=== PATIENT | female | born 1955 | race Caucasian/White ===

== ENCOUNTER 2017-06-19 05:26 | Inpatient (IN) | payer OTHER, MEDICARE ==
[2017-06-13 11:22] LABS: BASOPHILS % (AUTO) 0.6 % (0-1); EOSINOPHILS # (AUTO) 0.2 X10'3 (0-0.9); EOSINOPHILS % (AUTO) 4.1 % (0-6); LYMPHOCYTES # (AUTO) 1.3 X10'3 (1.1-4.8); LYMPHOCYTES % (AUTO) 28.6 % (21-51); MEAN CORPUSCULAR HEMOGLOBIN 30.1 PG (27.0-31.0); MEAN CORPUSCULAR HGB CONC 34.6 % (33.0-36.5); MEAN CORPUSCULAR VOLUME 86.9 FL (78-98); MEAN PLATELET VOLUME 7.4 FL (7.4-10.4); MONOCYTES # (AUTO) 0.3 X10'3 (0-0.9); MONOCYTES % (AUTO) 6.6 % (2-12); NEUTROPHILS # (AUTO) 2.7 X10'3 (1.8-7.7); NEUTROPHILS % (AUTO) 60.1 % (42-75); PRE OP HEMATOCRIT 36.3 % (35.0-45.0); PRE OP HEMOGLOBIN 12.6 g/dL (12.0-16.0); PRE OP PLATELET COUNT 273 X10'3 (140-440); RED BLOOD COUNT 4.18 X10'6 (4.20-5.60); RED CELL DISTRIBUTION WIDTH 12.8 % (11.5-14.5)
[2017-06-13 11:32] LABS: CLARITY,URINE Clear (Clear); COLOR,URINE Yellow (Yellow); GLUCOSE, URINE Negative (Neg); KETONES,URINE Negative (Neg); LEUKOCYTE ESTERASE ,URINE Small (Neg); NITRITES, URINE Negative (Neg); OCCULT BLOOD,URINE Moderate (Neg); PROTEIN,URINE Negative (Neg); UA COLLECTION TYPE CLN CATCH MIDSTREAM
[2017-06-13 11:34] LABS: PRE OP INR 0.9 INR; PRE OP PROTIME 9.4 SECONDS (9.0-12.0)
[2017-06-13 11:41] LABS: ALBUMIN 4.1 G/DL (3.4-5.0); ALBUMIN/GLOBULIN RATIO 1.2 (1.1-1.5); ALKALINE PHOSPHATASE 106 IU/L (46-116); BLOOD UREA NITROGEN 23 MG/DL (7-18); BUN/CREATININE RATIO 20.5 (6.6-38.0); CALCIUM 9.5 MG/DL (8.5-10.1); CHLORIDE 104 MMOL/L (99-107); CREATININE 1.12 MG/DL (0.40-0.90); PRE OP ALT 28 U/L (30-65); PRE OP ANION GAP 3 (8-16); PRE OP AST 19 U/L (10-37); PRE OP BILIRUB, TOTAL 0.6 MG/DL (0.0-1.0); PRE OP GLUCOSE 94 MG/DL (70-104); PRE OP POTASSIUM 4.1 MMOL/L (3.4-5.1); PRE OP SODIUM 141 MMOL/L (135-145); TOTAL CARBON DIOXIDE 33.8 MMOL/L (24-32); TOTAL PROTEIN 7.5 G/DL (6.4-8.2); eGFR 49 ML/MIN
[2017-06-13 11:45] LABS: SQUAMOUS EPITHELIAL CELL,UR FEW /LPF (FEW); TRANSITIONAL EPI CELLS,URINE FEW /HPF
[2017-06-13 11:47] LABS: BACTERIA,URINE FEW /HPF (Neg); WBC,URINE 0-4 /HPF (0-4)
[~2017-06-19] VITALS: Ht 162.6 cm; Wt 78.7 kg
[2017-06-19] VITALS (15 sets, daily range): BP systolic 82–127; BP diastolic 48–83
[~2017-06-19 05:26] MED LIST: BUPR150T6 PO; CELE-85 PO; CITA20TA11 PO; CYCL-1 PO; DULO60CA64 PO; HYDR-3193 PO; LISI1TAB11 PO; PANT40TA4 PO; VALA100027 PO; ringers solution, lacted 1,000 ML IV SCH
[2017-06-19] MEDS ORDERED: famotidine 20mg tablet PO ONE (05:30)
[2017-06-19] MEDS ORDERED: celeCOXIB 100mg capsule PO ONE (05:30)
[2017-06-19] MEDS ORDERED: oxyCODONE SR 10mg (sust. release) tab PO ONE (05:30)
[2017-06-19] MEDS ORDERED: gabapentin 300mg capsule PO ONE (05:30)
[2017-06-19] MEDS ORDERED: ceFAZolin 2gm in dextrose, iso 100 ML IV ONE (05:30)
[2017-06-19] MEDS ORDERED: acetaminophen 325mg tablet PO ONE (05:30)
[2017-06-19] MEDS ORDERED: vancomycin inj 1,500 MG in normal saline 300ml IV soln IV ONE (05:30)
[2017-06-19] MEDS ORDERED: LIDOcaine 1% (10mg/ml) 2ml vial ONE (05:54)
[2017-06-19] MEDS ORDERED: epiNEPHrine 1 mg/ml inj ONE (06:47)
[2017-06-19] MEDS ORDERED: cloNIDine hcl/PF 100mcg/ml inj ONE (06:47)
[2017-06-19] MEDS ORDERED: ketorolac trometh. 30mg/ml inj. ONE (06:47)
[2017-06-19] MEDS ORDERED: vancomycin 1,000mg inj ONE (06:47)
[2017-06-19] MEDS ORDERED: ROPIVAcaine 0.5% (5mg/ml) 30ml vial ONE (06:48)
[2017-06-19] MEDS ORDERED: ASPI-1265 PO (07:08)
[2017-06-19] MEDS ORDERED: BUPIVAcaine/PF 7.5mg/ml (0.75%) 10ml vial ONE (07:13)
[2017-06-19] MEDS ORDERED: MIDAZolam 1mg/ml 10ml vial ONE (07:15)
[2017-06-19] MEDS ORDERED: fentaNYL/PF 50MCG/1 ML 2ML syringe ONE (07:15)
[2017-06-19] MEDS ORDERED: tranexamic acid inj. 1,000 MG in normal saline 100ml IV soln 90 ML IV ONE (07:15)
[2017-06-19] MEDS ORDERED: MORPHINE SULFATE/PF 0.5 MG/ML 10ML AMPUL ONE (07:15)
[2017-06-19] MEDS ORDERED: LIDOcaine 1%/PF (10mg/ml) 5ml vial ONE (07:41)
[2017-06-19] MEDS ORDERED: ringers solution, lacted 1,000 ML IV SCH (08:09)
[2017-06-19] MEDS ORDERED: naloxone 2mg/2ml inj 1.6 MG in normal saline 500ml IV soln 500 ML IV PRN (08:10)
[2017-06-19] MEDS ORDERED: meperidine/PF 25mg/ml syringe IV PRN ×3 (08:10)
[2017-06-19] MEDS ORDERED: diphenhydrAMINE 50 mg/ml inj IV PRN (08:10)
[2017-06-19] MEDS ORDERED: proCHLORperazine 10 MG/2 ml inj IV PRN (08:10)
[2017-06-19] MEDS ORDERED: ondansetron/PF 4mg/2ml inj IV PRN ×2 (08:10→09:10)
[2017-06-19] MEDS ORDERED: magnesium hydroxide 30ml (MOM) UD suspension PO PRN (09:10)
[2017-06-19] MEDS ORDERED: acetaminophen 325mg tablet PO PRN (09:10)
[2017-06-19] MEDS ORDERED: VALACYCLOVIR HCL PO PRN (09:10)
[2017-06-19] MEDS ORDERED: bisacodyl 10mg suppository rectal RC PRN (09:10)
[2017-06-19] MEDS ORDERED: HYDROmorphone 1 mg/ml syringe IV PRN ×2 (09:10)
[2017-06-19] MEDS ORDERED: diphenhydrAMINE 25mg capsule PO PRN ×2 (09:10)
[2017-06-19] MEDS: cefazolin 1gm/NS 100mL 100 ML IV SCH ×2 (16:34→23:59)
[2017-06-19] MEDS: gabapentin 300mg capsule PO SCH ×2 (16:34→20:42)
[2017-06-19] MEDS: potassium cl 20mEq in 1/2 NS 1,000 ML IV SCH ×2 (16:35→17:09)
[2017-06-19] MEDS: oxyCODONE/APAP 10/325mg tablet PO PRN ×2 (16:43→17:41)
[2017-06-19] MEDS ORDERED: vancomycin/NS 1 GM ADD-VANTAGE 250 ML IV SCH (20:00)
[2017-06-19] MEDS: cyclobenzaprine 10mg tablet PO SCH (20:41)
[2017-06-19] MEDS: pantoprazole 40mg Tablet.DR PO SCH (20:42)
[2017-06-19] MEDS: ascorbic acid 500mg tablet PO SCH (20:42)
[2017-06-19] MEDS: sennosides 8.6mg tablet PO SCH (20:42)
[2017-06-20 02:00] VITALS: BP 118/66
[2017-06-20] MEDS: potassium cl 20mEq in 1/2 NS 1,000 ML IV SCH ×3 (03:20→17:09)
[2017-06-20] MEDS: oxyCODONE/APAP 10/325mg tablet PO PRN ×4 (03:45→18:55)
[2017-06-20 06:00] VITALS: BP 100/64
[2017-06-20 06:15] LABS: BASOPHILS % (AUTO) 0.2 % (0-1); EOSINOPHILS # (AUTO) 0.1 X10'3 (0-0.9); EOSINOPHILS % (AUTO) 1.4 % (0-6); HEMATOCRIT 26.4 % (35.0-45.0); HEMOGLOBIN 8.9 g/dl (12.0-16.0); LYMPHOCYTES % (AUTO) 14.5 % (21-51); MEAN CORPUSCULAR HEMOGLOBIN 29.8 PG (27.0-31.0); MEAN CORPUSCULAR HGB CONC 33.7 % (33.0-36.5); MEAN CORPUSCULAR VOLUME 88.3 FL (78-98); MEAN PLATELET VOLUME 7.7 FL (7.4-10.4); MONOCYTES # (AUTO) 0.5 X10'3 (0-0.9); MONOCYTES % (AUTO) 7.5 % (2-12); NEUTROPHILS # (AUTO) 5.1 X10'3 (1.8-7.7); NEUTROPHILS % (AUTO) 76.4 % (42-75); PLATELET COUNT 216 X10'3 (140-440); RED CELL DISTRIBUTION WIDTH 12.9 % (11.5-14.5); WHITE BLOOD COUNT 6.7 X10'3 (4.5-11.0)
[2017-06-20 06:42] LABS: ANION GAP 6 (8-16); CHLORIDE 102 MMOL/L (99-107); POTASSIUM 4.6 MMOL/L (3.5-5.1); SODIUM 135 MMOL/L (135-145); TOTAL CARBON DIOXIDE 27.4 MMOL/L (24-32)
[2017-06-20] MEDS: HYDROchlorothiazide 12.5mg capsule PO SCH (08:00)
[2017-06-20] MEDS: lisinopril 20mg tablet PO SCH (08:00)
[2017-06-20] MEDS: gabapentin 300mg capsule PO SCH ×3 (08:20→20:38)
[2017-06-20] MEDS: citalopram 20mg tablet PO SCH (08:20)
[2017-06-20] MEDS: duloxetine 30mg CAPSULE.DR PO SCH (08:20)
[2017-06-20] MEDS: pantoprazole 40mg Tablet.DR PO SCH ×2 (08:21→20:38)
[2017-06-20] MEDS: ascorbic acid 500mg tablet PO SCH ×2 (08:21→20:38)
[2017-06-20] MEDS: multivitamins, therapeutics tablet PO SCH (08:21)
[2017-06-20] MEDS: buPROPion SR 150mg tablet PO SCH (08:21)
[2017-06-20] MEDS: enoxaparin 40mg/0.4ml syringe SUBCUT SCH (08:22)
[2017-06-20] MEDS ORDERED: aspirin 325mg tablet PO SCH (08:30)
[2017-06-20 10:00] VITALS: BP 105/47
[2017-06-20 14:00] VITALS: BP 87/43
[2017-06-20 19:00] VITALS: BP 103/54
[2017-06-20] MEDS: sennosides 8.6mg tablet PO SCH (20:38)
[2017-06-20] MEDS: cyclobenzaprine 10mg tablet PO SCH (20:38)
[2017-06-21] MEDS: potassium cl 20mEq in 1/2 NS 1,000 ML IV SCH (01:09)
[2017-06-21] MEDS: oxyCODONE/APAP 10/325mg tablet PO PRN ×5 (04:32→20:35)
[2017-06-21 06:43] VITALS: BP 99/54
[2017-06-21 06:43] LABS: BASOPHILS % (AUTO) 0.2 % (0-1); EOSINOPHILS # (AUTO) 0.3 X10'3 (0-0.9); EOSINOPHILS % (AUTO) 6.1 % (0-6); HEMATOCRIT 24.4 % (35.0-45.0); HEMOGLOBIN 8.6 g/dl (12.0-16.0); LYMPHOCYTES # (AUTO) 1.3 X10'3 (1.1-4.8); LYMPHOCYTES % (AUTO) 24.1 % (21-51); MEAN CORPUSCULAR HEMOGLOBIN 30.4 PG (27.0-31.0); MEAN CORPUSCULAR HGB CONC 35.2 % (33.0-36.5); MEAN CORPUSCULAR VOLUME 86.3 FL (78-98); MEAN PLATELET VOLUME 7.8 FL (7.4-10.4); MONOCYTES # (AUTO) 0.5 X10'3 (0-0.9); MONOCYTES % (AUTO) 9.8 % (2-12); NEUTROPHILS # (AUTO) 3.3 X10'3 (1.8-7.7); NEUTROPHILS % (AUTO) 59.8 % (42-75); PLATELET COUNT 194 X10'3 (140-440); RED BLOOD COUNT 2.83 X10'6 (4.20-5.60); RED CELL DISTRIBUTION WIDTH 13.1 % (11.5-14.5); WHITE BLOOD COUNT 5.5 X10'3 (4.5-11.0)
[2017-06-21] MEDS: HYDROchlorothiazide 12.5mg capsule PO SCH (08:00)
[2017-06-21] MEDS: lisinopril 20mg tablet PO SCH (08:00)
[2017-06-21] MEDS: citalopram 20mg tablet PO SCH (08:29)
[2017-06-21] MEDS: pantoprazole 40mg Tablet.DR PO SCH ×2 (08:30→20:34)
[2017-06-21] MEDS: duloxetine 30mg CAPSULE.DR PO SCH (08:30)
[2017-06-21] MEDS: gabapentin 300mg capsule PO SCH ×3 (08:30→20:34)
[2017-06-21] MEDS: enoxaparin 40mg/0.4ml syringe SUBCUT SCH (08:31)
[2017-06-21] MEDS: multivitamins, therapeutics tablet PO SCH (08:31)
[2017-06-21] MEDS: buPROPion SR 150mg tablet PO SCH (08:31)
[2017-06-21] MEDS: ascorbic acid 500mg tablet PO SCH ×2 (08:31→20:34)
[2017-06-21 11:00] VITALS: BP 105/49
[2017-06-21 18:34] VITALS: BP 120/58
[2017-06-21] MEDS: sennosides 8.6mg tablet PO SCH (20:34)
[2017-06-21] MEDS: cyclobenzaprine 10mg tablet PO SCH (20:34)
[2017-06-21 22:08] VITALS: BP 107/51
[2017-06-22] MEDS: oxyCODONE/APAP 10/325mg tablet PO PRN ×2 (04:56→09:18)
[2017-06-22 05:00] VITALS: BP 97/48
[2017-06-22 06:52] LABS: BASOPHILS % (AUTO) 0.2 % (0-1); EOSINOPHILS # (AUTO) 0.2 X10'3 (0-0.9); EOSINOPHILS % (AUTO) 4.5 % (0-6); HEMATOCRIT 24.3 % (35.0-45.0); HEMOGLOBIN 8.7 g/dl (12.0-16.0); LYMPHOCYTES # (AUTO) 0.8 X10'3 (1.1-4.8); LYMPHOCYTES % (AUTO) 15.5 % (21-51); MEAN CORPUSCULAR HEMOGLOBIN 30.7 PG (27.0-31.0); MEAN CORPUSCULAR HGB CONC 35.7 % (33.0-36.5); MEAN PLATELET VOLUME 7.9 FL (7.4-10.4); MONOCYTES # (AUTO) 0.5 X10'3 (0-0.9); MONOCYTES % (AUTO) 9.7 % (2-12); NEUTROPHILS # (AUTO) 3.8 X10'3 (1.8-7.7); NEUTROPHILS % (AUTO) 70.1 % (42-75); PLATELET COUNT 193 X10'3 (140-440); RED BLOOD COUNT 2.83 X10'6 (4.20-5.60); RED CELL DISTRIBUTION WIDTH 13.2 % (11.5-14.5); WHITE BLOOD COUNT 5.4 X10'3 (4.5-11.0)
[2017-06-22] MEDS: HYDROchlorothiazide 12.5mg capsule PO SCH (08:00)
[2017-06-22] MEDS: lisinopril 20mg tablet PO SCH (08:00)
[2017-06-22] MEDS: ascorbic acid 500mg tablet PO SCH (09:12)
[2017-06-22] MEDS: enoxaparin 40mg/0.4ml syringe SUBCUT SCH (09:13)
[2017-06-22] MEDS: buPROPion SR 150mg tablet PO SCH (09:14)
[2017-06-22] MEDS: gabapentin 300mg capsule PO SCH (09:14)
[2017-06-22] MEDS: duloxetine 30mg CAPSULE.DR PO SCH (09:14)
[2017-06-22] MEDS: citalopram 20mg tablet PO SCH (09:15)
[2017-06-22] MEDS: pantoprazole 40mg Tablet.DR PO SCH (09:15)
[2017-06-22] MEDS: multivitamins, therapeutics tablet PO SCH (09:17)
[2017-06-22 10:00] VITALS: BP 111/65
== END 2017-06-22 12:00 | disposition home or self-care (01) | DRG 470 ==
LOC: PAS IN 05:26 → EDSTATUS 07:30 → ORTHO 4S 10:00
PROVIDERS: ADMIT Orthopaedic Surgery; ATTEND Orthopaedic Surgery
PROC: 3E0T3BZ Introduction of Anesthetic Agent into Peripheral Nerves and Plexi, Percutaneous Approach (ICD-10-PCS; 2017-06-19)
PROC: 0SR906Z Replacement of Right Hip Joint with Oxidized Zirconium on Polyethylene Synthetic Substitute, Open Approach (ICD-10-PCS; principal; 2017-06-19 07:10)
DX: M16.11 Unilateral primary osteoarthritis, right hip (principal); D62 Acute posthemorrhagic anemia; I10 Essential (primary) hypertension; I48.91 Unspecified atrial fibrillation; K21.9 Gastro-esophageal reflux disease without esophagitis; F32.9 Major depressive disorder, single episode, unspecified; F41.9 Anxiety disorder, unspecified; G89.4 Chronic pain syndrome; M79.7 Fibromyalgia; Z80.9 Family history of malignant neoplasm, unspecified; Z79.82 Long term (current) use of aspirin; Z88.6 Allergy status to analgesic agent; Z88.8 Allergy status to other drugs, medicaments and biological substances; Z82.49 Family history of ischemic heart disease and other diseases of the circulatory system; Z83.3 Family history of diabetes mellitus; Z82.3 Family history of stroke; Z87.891 Personal history of nicotine dependence
CPT/HCPCS: 36415; 71046; 72170; 80051; 80053; 81001; 85025; 85610; 85730; 86885; 86900; 86901; 87070; 87088; 93005; 97110; 97116; 97162; 97530; A4615; A6449; A7000; C1758; C1776; J0171; J0690; J0735; J1200; J1650; J1885; J2001; J2250; J2274; J2310; J2405; J2795; J3010; J3370; J3490; J7030; J7120

== ENCOUNTER 2019-11-12 05:24 | Observation (INO) | payer MEDICARE ==
[2019-11-04 12:47] LABS: BASOPHILS % (AUTO) 0.5 % (0-1); EOSINOPHILS # (AUTO) 0.2 X10'3 (0-0.9); EOSINOPHILS % (AUTO) 4.1 % (0-6); LYMPHOCYTES % (AUTO) 23.1 % (21-51); MEAN CORPUSCULAR HEMOGLOBIN 30.3 PG (27.0-31.0); MEAN CORPUSCULAR HGB CONC 33.9 g/dL (33.0-36.5); MEAN CORPUSCULAR VOLUME 89.5 FL (78-98); MEAN PLATELET VOLUME 7.6 FL (7.4-10.4); MONOCYTES # (AUTO) 0.3 X10'3 (0-0.9); MONOCYTES % (AUTO) 7.2 % (2-12); NEUTROPHILS # (AUTO) 2.9 X10'3 (1.8-7.7); NEUTROPHILS % (AUTO) 65.1 % (42-75); PRE OP HEMATOCRIT 35.8 % (35.0-45.0); PRE OP HEMOGLOBIN 12.1 g/dL (12.0-16.0); PRE OP PLATELET COUNT 272 X10'3 (140-440); RED CELL DISTRIBUTION WIDTH 13.1 % (11.5-14.5)
[2019-11-04 12:57] LABS: PRE OP INR 0.9 INR; PRE OP PROTIME 9.8 SECONDS (9.0-12.0)
[2019-11-04 12:59] LABS: ALBUMIN 3.7 G/DL (3.4-5.0); ALBUMIN/GLOBULIN RATIO 1.1 (1.1-1.5); ALKALINE PHOSPHATASE 119 IU/L (46-116); BLOOD UREA NITROGEN 18 MG/DL (7-18); BUN/CREATININE RATIO 13.2 (6.6-38.0); CHLORIDE 103 MMOL/L (99-107); CREATININE 1.36 MG/DL (0.40-0.90); PRE OP ALT 21 U/L (30-65); PRE OP ANION GAP 8 (8-16); PRE OP AST 19 U/L (10-37); PRE OP BILIRUB, TOTAL 0.4 MG/DL (0.0-1.0); PRE OP GLUCOSE 155 MG/DL (70-104); PRE OP POTASSIUM 3.8 MMOL/L (3.4-5.1); PRE OP SODIUM 142 MMOL/L (135-145); TOTAL CARBON DIOXIDE 31.5 MMOL/L (24-32); eGFR 39 ML/MIN
[~2019-11-12] VITALS: Ht 162.6 cm; Wt 72.6 kg
[2019-11-12] VITALS (14 sets, daily range): BP systolic 86–133; BP diastolic 31–91
[~2019-11-12 05:24] MED LIST changes: -CELE-85 PO; -CITA20TA11 PO; +CITA20TA28 PO; -CYCL-1 PO; -DULO60CA64 PO; +DULO60CA65 PO; -HYDR-3193 PO; +HYDR-4353 PO; -LISI1TAB11 PO; +LISI1TAB28 PO; -VALA100027 PO
[2019-11-12] MEDS ORDERED: famotidine 20mg tablet PO ONE (05:30)
[2019-11-12] MEDS ORDERED: cefazolin/dext.iso 2gm/50ml 50 ML IV ONE (05:30)
[2019-11-12] MEDS ORDERED: acetaminophen 325mg tablet PO ONE (05:30)
[2019-11-12] MEDS ORDERED: vancomycin 1,500 MG in NS 300ml IV soln IV ONE (05:30)
[2019-11-12] MEDS ORDERED: metoclopramide 5 mg/ml inj IV ONE (05:30)
[2019-11-12] MEDS ORDERED: gabapentin 300mg capsule PO ONE (05:30)
[2019-11-12] MEDS ORDERED: celeCOXIB 100mg capsule PO ONE (05:30)
[2019-11-12] MEDS ORDERED: oxyCODONE SR 10mg (sust. release) tab -2 tabs (20mg) PO ONE (05:30)
[2019-11-12] MEDS ORDERED: tranexamic acid 1gm/0.7% sal. 100 ML IV ONE (05:30)
[2019-11-12] MEDS ORDERED: LIDOcaine 1% (10mg/ml) 2ml vial ONE (05:55)
[2019-11-12] MEDS ORDERED: ketorolac trometh. 30mg/ml inj. ONE (06:37)
[2019-11-12] MEDS ORDERED: ROPIVAcaine 0.5% (5mg/ml) 30ml vial ONE (06:38)
[2019-11-12] MEDS ORDERED: epiNEPHrine 1 mg/ml inj ONE (06:38)
[2019-11-12] MEDS ORDERED: vancomycin 1,000mg inj ONE (06:38)
[2019-11-12] MEDS ORDERED: cloNIDine hcl/PF 100mcg/ml inj ONE (06:38)
[2019-11-12] MEDS: potassium cl 20mEq in 1/2 NS 1,000 ML IV SCH ×3 (06:40→20:33)
[2019-11-12] MEDS ORDERED: magnesium hydroxide 30ml (MOM) UD suspension PO PRN (06:40)
[2019-11-12] MEDS ORDERED: bisacodyl 10mg suppository rectal RC PRN (06:40)
[2019-11-12] MEDS ORDERED: ondansetron/PF 4mg/2ml inj IV PRN ×2 (06:40→06:55)
[2019-11-12] MEDS ORDERED: diphenhydrAMINE 25mg capsule PO PRN ×2 (06:40)
[2019-11-12] MEDS ORDERED: tranexamic acid inj. 1,000 MG in normal saline 100ml IV soln 100 ML IV ONE ×2 (06:40→13:00)
[2019-11-12] MEDS ORDERED: acetaminophen 325mg tablet PO PRN (06:40)
[2019-11-12] MEDS ORDERED: hydrALAZINE 20mg/ml inj. IV PRN (06:55)
[2019-11-12] MEDS ORDERED: ringers solution, lacted 1,000 ML IV SCH (06:55)
[2019-11-12] MEDS ORDERED: labetalol 20mg/4ml (5mg/ml) syringe IV PRN (06:55)
[2019-11-12] MEDS ORDERED: fentaNYL/PF 50MCG/1 ML 2ML syringe IV PRN ×2 (06:55)
[2019-11-12] MEDS ORDERED: fentaNYL/PF 50MCG/1 ML 2ML syringe ONE (06:58)
[2019-11-12] MEDS ORDERED: MIDAZolam 1mg/ml 10ml vial ONE (06:58)
[2019-11-12] MEDS ORDERED: phenylephrine 10mg/ml inj. ONE (07:01)
[2019-11-12] MEDS: citalopram 20mg tablet PO SCH (08:00)
[2019-11-12] MEDS: duloxetine 30mg CAPSULE.DR PO SCH (08:00)
[2019-11-12] MEDS: lisinopril 20mg tablet PO SCH (08:00)
[2019-11-12] MEDS: buPROPion SR 150mg tablet PO SCH (08:00)
[2019-11-12] MEDS: pantoprazole 40mg Tablet.DR PO SCH ×2 (08:00→20:33)
--- NOTE | 2019-11-12 08:20 | NUR ---
Received from OR via BED , accompanied by Anesthesiologist DR JIMÉNEZ and report given by Anesthesiolgist. PATIENT WAKING UP, DENIES PAIN, V/S WNL, NEUROVASCULAR CHECKS INTACT, 18G PIV LUE , TAD DRESSING TO LEFT HIP CDI W/ COLD POWDER PACK AND IMMOBILIZER ON SENSATION T-11-12.
--- NOTE | 2019-11-12 09:20 | NUR ---
PATIENT WAKING UP, DENIES PAIN, V/S WNL, NEUROVASCULAR CHECKS INTACT, 18G PIV LUE , TAD DRESSING TO LEFT HIP CDI W/ COLD POWDER PACK AND IMMOBILIZER ON SENSATION T-11-12. . PATIENT TAKEN TO 4024A WITH ALL BELONGINGS AND HOOKED UP TO MONITORS IN ROOM AND REPORT GIVEN TO [employer] INVESTIGATOR WHO HAS TAKEN OVER PATIENT CARE.
[2019-11-12] MEDS: oxyCODONE/APAP 5-325mg tablet PO PRN ×3 (09:48→19:39)
[2019-11-12] MEDS: HYDROmorphone 1 mg/ml syringe IV PRN ×3 (12:55→21:53)
--- NOTE | 2019-11-12 16:00 | NUR ---
PATIENT BLOOD PRESSURE 83/26 GAVE HER A 250 BOLUS PER PROTOCOL CAME UP TO 113/46 WILL CONTINUE TO MONITOR
[2019-11-12] MEDS: ceFAZolin 1GM/D5W- ADD-VANTAGE 50 ML IV SCH (16:08)
--- NOTE | 2019-11-12 18:20 | NUR ---
Patient in room ORTHO 4015. I have received report from MIHAI Mcpherson and had the opportunity to ask questions and assume patient care.
[2019-11-12] MEDS ORDERED: vancomycin/NS 1 GM ADD-VANTAGE 250 ML IV SCH (20:00)
[2019-11-12] MEDS: gabapentin 300mg capsule PO SCH (20:33)
[2019-11-12] MEDS: sennosides 8.6mg tablet PO SCH (20:33)
[2019-11-12] MEDS: ascorbic acid 500mg tablet PO SCH (20:33)
[2019-11-13] VITALS (7 sets, daily range): BP systolic 94–123; BP diastolic 42–56
[2019-11-13] MEDS: ceFAZolin 1GM/D5W- ADD-VANTAGE 50 ML IV SCH (00:29)
[2019-11-13] MEDS: HYDROmorphone inj. 0.5 MG/0.5 ML DISP.SYRIN IV PRN ×2 (02:18→20:32)
[2019-11-13] MEDS: oxyCODONE/APAP 5-325mg tablet PO PRN ×3 (04:15→22:43)
[2019-11-13 06:05] LABS: BASOPHILS % (AUTO) 0.3 % (0-1); EOSINOPHILS # (AUTO) 0.1 X10'3 (0-0.9); EOSINOPHILS % (AUTO) 1.9 % (0-6); HEMATOCRIT 29.2 % (35.0-45.0); HEMOGLOBIN 9.9 g/dl (12.0-16.0); LYMPHOCYTES # (AUTO) 0.7 X10'3 (1.1-4.8); LYMPHOCYTES % (AUTO) 15.4 % (21-51); MEAN CORPUSCULAR HEMOGLOBIN 30.4 PG (27.0-31.0); MEAN CORPUSCULAR VOLUME 89.4 FL (78-98); MEAN PLATELET VOLUME 7.8 FL (7.4-10.4); MONOCYTES # (AUTO) 0.4 X10'3 (0-0.9); MONOCYTES % (AUTO) 9.8 % (2-12); NEUTROPHILS # (AUTO) 3.3 X10'3 (1.8-7.7); NEUTROPHILS % (AUTO) 72.6 % (42-75); PLATELET COUNT 209 X10'3 (140-440); RED BLOOD COUNT 3.26 X10'6 (4.20-5.60); RED CELL DISTRIBUTION WIDTH 12.6 % (11.5-14.5); WHITE BLOOD COUNT 4.6 X10'3 (4.5-11.0)
[2019-11-13 06:18] LABS: ANION GAP 6 (8-16); CHLORIDE 106 MMOL/L (99-107); SODIUM 141 MMOL/L (135-145); TOTAL CARBON DIOXIDE 29.4 MMOL/L (24-32)
--- NOTE | 2019-11-13 06:19 | NUR ---
Problems reprioritized. Patient report given, questions answered & plan of care reviewed with MIHAI Monterroso.
--- NOTE | 2019-11-13 06:28 | NUR ---
Patient in room ORTHO 4024. I have received report from Ceci HOLM and had the opportunity to ask questions and assume patient care.
[2019-11-13] MEDS: HYDROchlorothiazide 12.5mg capsule PO SCH (07:27)
[2019-11-13] MEDS: lisinopril 20mg tablet PO SCH (07:28)
[2019-11-13] MEDS: HYDROmorphone 1 mg/ml syringe IV PRN ×2 (09:31→13:55)
[2019-11-13] MEDS: buPROPion SR 150mg tablet PO SCH ×2 (09:33→20:26)
[2019-11-13] MEDS: duloxetine 30mg CAPSULE.DR PO SCH (09:33)
[2019-11-13] MEDS: citalopram 20mg tablet PO SCH (09:34)
[2019-11-13] MEDS: pantoprazole 40mg Tablet.DR PO SCH ×2 (09:35→20:26)
[2019-11-13] MEDS: multivitamins, therapeutics tablet PO SCH (09:35)
[2019-11-13] MEDS: gabapentin 300mg capsule PO SCH ×3 (09:35→20:26)
[2019-11-13] MEDS: ascorbic acid 500mg tablet PO SCH ×2 (09:35→20:26)
[2019-11-13] MEDS: aspirin 325mg tablet PO SCH (09:36)
[2019-11-13] MEDS: potassium cl 20mEq in 1/2 NS 1,000 ML IV SCH ×3 (09:38→22:40)
--- NOTE | 2019-11-13 12:39 | NUR ---
Patient resting quietly, at bedside. No complaints or stated needs at this time.
--- NOTE | 2019-11-13 13:37 | NUR ---
Joint replacement surgery: Pt/ seen by FILI for written/verbal high protein ed w/ RD contact information provided. Pt declines additional proteins at this time. Addendum: 11/13/19 at [address] Amended: Links added.
--- NOTE | 2019-11-13 19:00 | NUR ---
Report from Kriss.
--- NOTE | 2019-11-13 19:25 | NUR ---
Report given to Tonia HOLM.
[2019-11-13] MEDS: sennosides 8.6mg tablet PO SCH (20:26)
[2019-11-14] MEDS: oxyCODONE/APAP 5-325mg tablet PO PRN ×2 (03:52→12:18)
[2019-11-14 06:00] VITALS: BP 93/39
[2019-11-14 06:10] LABS: BASOPHILS % (AUTO) 0.1 % (0-1); EOSINOPHILS % (AUTO) 0.5 % (0-6); HEMATOCRIT 26.9 % (35.0-45.0); HEMOGLOBIN 9.1 g/dl (12.0-16.0); LYMPHOCYTES # (AUTO) 0.6 X10'3 (1.1-4.8); LYMPHOCYTES % (AUTO) 8.3 % (21-51); MEAN CORPUSCULAR HEMOGLOBIN 30.3 PG (27.0-31.0); MEAN CORPUSCULAR VOLUME 89.2 FL (78-98); MONOCYTES # (AUTO) 0.6 X10'3 (0-0.9); MONOCYTES % (AUTO) 9.1 % (2-12); NEUTROPHILS # (AUTO) 5.7 X10'3 (1.8-7.7); PLATELET COUNT 187 X10'3 (140-440); RED BLOOD COUNT 3.01 X10'6 (4.20-5.60); RED CELL DISTRIBUTION WIDTH 13.4 % (11.5-14.5); WHITE BLOOD COUNT 6.9 X10'3 (4.5-11.0)
--- NOTE | 2019-11-14 06:25 | NUR ---
Patient in room ORTHO 4024. I have received report from Tonia Watts and had the opportunity to ask questions and assume patient care.
--- NOTE | 2019-11-14 06:35 | NUR ---
Problems reprioritized. Patient report given, questions answered & plan of care reviewed with MIHAI Deng.
[2019-11-14] MEDS: HYDROmorphone inj. 0.5 MG/0.5 ML DISP.SYRIN IV PRN (06:42)
[2019-11-14] MEDS: citalopram 20mg tablet PO SCH (07:15)
[2019-11-14] MEDS: gabapentin 300mg capsule PO SCH ×2 (07:15→12:18)
[2019-11-14] MEDS: duloxetine 30mg CAPSULE.DR PO SCH (07:15)
[2019-11-14] MEDS: pantoprazole 40mg Tablet.DR PO SCH (07:16)
[2019-11-14] MEDS: buPROPion SR 150mg tablet PO SCH (07:16)
[2019-11-14] MEDS: multivitamins, therapeutics tablet PO SCH (07:16)
[2019-11-14] MEDS: ascorbic acid 500mg tablet PO SCH (07:16)
[2019-11-14] MEDS: HYDROchlorothiazide 12.5mg capsule PO SCH (07:18)
[2019-11-14] MEDS: lisinopril 20mg tablet PO SCH (07:18)
[2019-11-14] MEDS: aspirin 325mg tablet PO SCH (10:19)
[2019-11-14 10:41] VITALS: BP 100/41
--- NOTE | 2019-11-14 14:30 | NUR ---
Reviewed discharge instructions with pt. Pt verbalized understanding. Pt is alert, oriented. Pt's spouse is at bedside assisting pt with dressing. All of pt's belongings were returned to pt. Pt was wheeled downstairs to be driven home by her spouse.
== END 2019-11-14 14:30 | disposition home or self-care (01) ==
LOC: PAS 05:24 → ORTHO 4S 05:25
PROVIDERS: ADMIT Orthopaedic Surgery; ATTEND Orthopaedic Surgery
DX: Z03.818 Encounter for observation for suspected exposure to other biological agents ruled out (principal); M16.12 Unilateral primary osteoarthritis, left hip
CPT/HCPCS: 27130; 36415; 72170; 80051; 80053; 82948; 85025; 85610; 85730; 86885; 86900; 86901; 87081; 96365; 96366; 96367; 96375; 96376; 97110; 97116; 97161; 97530; C1776; G0378; J0171; J0690; J0735; J1170; J1885; J2001; J2250; J2370; J2765; J3010; J3370; J7040; J7120; U0003; A4615; A7000; J2795; J3480

== ENCOUNTER 2021-08-18 06:10 | Inpatient (IN) | payer MEDICARE ==
[2021-08-12 16:07] LABS: CLARITY,URINE CLOUDY (Clear); COLOR,URINE YELLOW (Yellow); GLUCOSE, URINE NEGATIVE (Neg); KETONES,URINE TRACE mg/dl (Neg); LEUKOCYTE ESTERASE ,URINE MODERATE (Neg); NITRITES, URINE NEGATIVE (Neg); OCCULT BLOOD,URINE MODERATE (Neg); PH,URINE 5.5 (4.8-8.0); PROTEIN,URINE NEGATIVE (Neg); UROBILINOGEN,URINE 0.2 E.U/dL (0.2-1.0)
[2021-08-12 16:10] LABS: BASOPHILS % (AUTO) 0.6 % (0-1); EOSINOPHILS # (AUTO) 0.2 X10'3 (0-0.9); LYMPHOCYTES # (AUTO) 1.3 X10'3 (1.1-4.8); LYMPHOCYTES % (AUTO) 28.9 % (21-51); MEAN CORPUSCULAR HEMOGLOBIN 29.2 PG (27.0-31.0); MEAN CORPUSCULAR HGB CONC 33.5 g/dL (33.0-36.5); MEAN CORPUSCULAR VOLUME 87.2 FL (78-98); MEAN PLATELET VOLUME 7.8 FL (7.4-10.4); MONOCYTES # (AUTO) 0.3 X10'3 (0-0.9); NEUTROPHILS # (AUTO) 2.6 X10'3 (1.8-7.7); NEUTROPHILS % (AUTO) 58.5 % (42-75); PRE OP HEMATOCRIT 37.1 % (35.0-45.0); PRE OP HEMOGLOBIN 12.4 g/dL (12.0-16.0); PRE OP PLATELET COUNT 247 X10'3 (140-440); RED BLOOD COUNT 4.25 X10'6 (4.20-5.60); RED CELL DISTRIBUTION WIDTH 13.6 % (11.5-14.5)
[2021-08-12 16:13] LABS: UA COLLECTION TYPE CLN CATCH MIDSTREAM
[2021-08-12 16:14] LABS: SQUAMOUS EPITHELIAL CELL,UR MANY /LPF (FEW)
[2021-08-12 16:15] LABS: BACTERIA,URINE 1+ /HPF (Neg); MUCUS STRANDS FEW /LPF (Neg); RBC,URINE 0-2 /HPF (0-2); TRANSITIONAL EPI CELLS,URINE MODERATE /HPF
[2021-08-12 16:17] LABS: ALBUMIN 3.4 G/DL (3.4-5.0); ALBUMIN/GLOBULIN RATIO 0.9 (1.1-1.5); ALKALINE PHOSPHATASE 113 IU/L (46-116); BLOOD UREA NITROGEN 25 MG/DL (7-18); BUN/CREATININE RATIO 25.5 (6.6-38.0); CALCIUM 9.5 MG/DL (8.5-10.1); CHLORIDE 104 MMOL/L (99-107); CREATININE 0.98 MG/DL (0.40-0.90); PRE OP ALT 19 U/L (30-65); PRE OP ANION GAP 9 (8-16); PRE OP AST 16 U/L (10-37); PRE OP BILIRUB, TOTAL 0.2 MG/DL (0.0-1.0); PRE OP GLUCOSE 126 MG/DL (70-104); PRE OP POTASSIUM 3.9 MMOL/L (3.4-5.1); PRE OP SODIUM 143 MMOL/L (135-145); TOTAL CARBON DIOXIDE 30.4 MMOL/L (24-32); eGFR 57 ML/MIN
[2021-08-18] VITALS (24 sets, daily range): BP systolic 103–134; BP diastolic 42–86
[~2021-08-18] VITALS: Ht 162.6 cm; Wt 74.8 kg
[~2021-08-18 06:10] MED LIST changes: +BUPR-317 PO; -BUPR150T6 PO; +ESTR10TA4 VG; +GABA300C PO; +GABA600T13 PO; +HYDR-3972 PO; -HYDR-4353 PO; -LISI1TAB28 PO; +LISI1TAB51 PO; -PANT40TA4 PO; +cefazolin/dext.iso 2gm/50ml IV ONE; +famotidine 20mg tablet PO ONE; -ringers solution, lacted 1,000 ML IV SCH
[2021-08-18] MEDS ORDERED: CYCL-1 PO (07:24)
[2021-08-18] MEDS: ringers solution, lacted 1,000 ML IV SCH ×5 (07:32→22:21)
[2021-08-18] MEDS ORDERED: BUPIVAcaine 0.5% inj/PF 30 ML ONE (09:19)
[2021-08-18] MEDS ORDERED: ringers solution, lacted 1,000 ML IV SCH (09:35)
[2021-08-18] MEDS ORDERED: hydrALAZINE 20mg/ml inj. IV PRN (09:35)
[2021-08-18] MEDS ORDERED: fentaNYL/PF 50MCG/1 ML 2ML syringe IV PRN (09:35)
[2021-08-18] MEDS ORDERED: labetalol 20mg/4ml (5mg/ml) syringe IV PRN (09:35)
[2021-08-18] MEDS ORDERED: HYDROmorphone/PF 0.2 MG/ML SYRINGE IV PRN ×2 (09:35)
[2021-08-18] MEDS ORDERED: ondansetron/PF 4mg/2ml inj IV PRN ×2 (09:35→11:55)
[2021-08-18] MEDS ORDERED: FENTANYL CITRATE/PF 50 MCG/1 ML VIAL ONE (09:37)
[2021-08-18] MEDS ORDERED: midazolam 1 mg/ML 2ml injection ONE (09:38)
[2021-08-18] MEDS ORDERED: LIDOcaine 2% (20mg/ml) 5ml vial ONE (09:39)
[2021-08-18] MEDS ORDERED: propofol inj 20 ML IV ONE (09:39)
[2021-08-18] MEDS ORDERED: glycopyrrolate 0.2mg/ml inj ONE (09:40)
[2021-08-18] MEDS ORDERED: ondansetron/PF 4mg/2ml inj ONE (09:40)
[2021-08-18] MEDS ORDERED: neostigmine methylsulfate 1 MG/ML 10ml vial ONE (09:40)
[2021-08-18] MEDS ORDERED: atropine 0.4 mg/ml 20ml vial ONE (10:12)
[2021-08-18] MEDS ORDERED: BUPIVAcaine 0.5% inj/PF 30 ml vial IJ ONE (10:40)
--- NOTE | 2021-08-18 11:10 | NUR ---
PT ARRIVED TO RR VIA VISHNU, ACCOMPANIED BY DR. JIMÉNEZ-ANESTHESIA REPORT GIVEN, PT WAKING UP, DENIES PAIN, VSS, 20G PIV RUE, SCDS ON, 4 LAPS SITE-CDI WITH JANETTE PRESENT-SUCTION PRESENT.
[2021-08-18] MEDS: fentaNYL/PF 50MCG/1 ML 2ML syringe IV PRN ×2 (11:18→11:45)
[2021-08-18] MEDS ORDERED: acetaminophen 1,000mg/100ml IV 100 ML IV ONE (11:40)
[2021-08-18] MEDS ORDERED: naloxone 0.4 mg/ml inj IV PRN (11:55)
--- NOTE | 2021-08-18 12:30 | NUR ---
DR BROWN CAME IN TO SEE PT, PT PAINFUL-DECISION MADE FOR PT TO STAY THE NIGHT, ORDERS PLACED FOR DIL. CADD FOR CONT. PAIN CONTROL ALONG WITH OTHER NECESSARY ORDERS FOR THE FLOOR.
[2021-08-18] MEDS ORDERED: cyclobenzaprine 10mg tablet PO PRN (12:45)
[2021-08-18] MEDS: HYDROmorph./NS 0.2 mg/ml CADD 50 ML IV SCH ×6 (13:14→23:00)
--- NOTE | 2021-08-18 13:33 | NUR ---
VALDO RAMOS STARTED-PT EDUCATED, PAIN BETTER 08/05, WAITING FOR ROOM UPSTAIRS, HANDING OVER CARE TO SANDRA RN-REPORT GIVEN
--- NOTE | 2021-08-18 13:45 | NUR ---
ASSUMED CARE FOR THIS PT. AT 1345 Addendum: 08/18/21 at 1347 by Katrina Painting RN Amended: Links added.
--- NOTE | 2021-08-18 13:45 | NUR ---
ASSUMED CARE OF THIS PT. AT 1345 Addendum: 08/18/21 at 1347 by Katrina Painting RN Amended: Links added.
--- NOTE | 2021-08-18 14:45 | NUR ---
Patient admitted to 348A via stretcher, AXOX4 no distress noted on 2L NC. CADD in place, patient c/o discomfort/pain to abdomen with activity. sanguineous drainage noted on drsg and JANETTE drain. educated patient to use call light for surgical assistant certified. no other complaint at time, call light within reach, safety measure maintain.
--- NOTE | 2021-08-18 14:46 | NUR ---
PATIENT MEETS DISCHARGE CRITERIA. VVS. ON 2 LITERS O2 AT 97%. JANETTE PUT OUT 30 MLS. DRESSING SHOWS SCANT BLOOD. TOOK PATIENT UP ON A GURNEY AND TRANSFERRED HER TO THE BED. LOWERED BED, O2 TRANSFERRED, CADD BUTTON GIVEN TO PATIENT, CALL LIGHT GIVEN TO PATIENT. NURSE AT BEDSIDE TO RECEIVE PATIENT. Addendum: 08/18/21 at 1649 by Katrina Painting RN Amended: Links added.
[2021-08-18 16:53] LABS: HEMATOCRIT 36.2 % (35.0-45.0); HEMOGLOBIN 12.3 g/dl (12.0-16.0); MEAN CORPUSCULAR HEMOGLOBIN 29.4 PG (27.0-31.0); MEAN CORPUSCULAR HGB CONC 34.1 g/dL (33.0-36.5); MEAN CORPUSCULAR VOLUME 86.3 FL (78-98); MEAN PLATELET VOLUME 7.4 FL (7.4-10.4); PLATELET COUNT 228 X10'3 (140-440); RED BLOOD COUNT 4.19 X10'6 (4.20-5.60); RED CELL DISTRIBUTION WIDTH 13.4 % (11.5-14.5)
[2021-08-18] MEDS: normal saline 1000ml 1,000 ML IV SCH (17:27)
[2021-08-18] MEDS: piperacillin/tazo 3.375gm/50ml 50 ML IV SCH ×2 (17:28→23:19)
[2021-08-18] MEDS ORDERED: ESTRADIOL VG SCH (20:00)
[2021-08-18] MEDS ORDERED: HYDROcodone/acetaminophen 10/325mg tab PO SCH (20:00)
[2021-08-18] MEDS ORDERED: docusate sod 100mg capsule PO SCH (20:00)
[2021-08-18] MEDS: sennosides/docusate sodium tablet PO SCH (20:36)
[2021-08-19] VITALS: BP 97/49
[2021-08-19] MEDS: HYDROmorph./NS 0.2 mg/ml CADD 50 ML IV SCH ×13 (01:00→23:00)
[2021-08-19 04:53] VITALS: BP 170/78
--- NOTE | 2021-08-19 06:51 | NUR ---
Patient remains in stable condition, on pain management by CADD button. Report given to Jennifer RN, for continuation of care.
[2021-08-19 07:59] VITALS: BP 113/58
[2021-08-19] MEDS ORDERED: gabapentin 300mg capsule PO SCH ×2 (08:00→11:46)
[2021-08-19] MEDS: piperacillin/tazo 3.375gm/50ml 50 ML IV SCH ×3 (08:00→23:33)
[2021-08-19] MEDS: lisinopril 20mg tablet PO SCH (08:00)
[2021-08-19] MEDS: gabapentin 300mg capsule PO SCH (08:00)
[2021-08-19] MEDS: duloxetine 30mg CAPSULE.DR PO SCH (08:07)
[2021-08-19] MEDS: citalopram 20mg tablet PO SCH (08:08)
[2021-08-19] MEDS: sennosides/docusate sodium tablet PO SCH ×2 (08:09→20:57)
[2021-08-19] MEDS: HYDROchlorothiazide 12.5mg capsule PO SCH (08:11)
[2021-08-19 12:00] VITALS: BP 113/52
[2021-08-19] MEDS ORDERED: DULO-31 PO (13:37)
[2021-08-19] MEDS: CADD PCA waste documentation MC PRN (17:04)
[2021-08-19 18:00] VITALS: BP 123/53
[2021-08-20] VITALS: BP 98/53
[2021-08-20] MEDS: HYDROmorph./NS 0.2 mg/ml CADD 50 ML IV SCH ×6 (01:00→11:00)
[2021-08-20] MEDS: piperacillin/tazo 3.375gm/50ml 50 ML IV SCH (07:50)
[2021-08-20] MEDS: duloxetine 30mg CAPSULE.DR PO SCH (07:51)
[2021-08-20] MEDS: HYDROchlorothiazide 12.5mg capsule PO SCH (07:51)
[2021-08-20] MEDS: citalopram 20mg tablet PO SCH (07:52)
[2021-08-20] MEDS: gabapentin 300mg capsule PO SCH (07:52)
[2021-08-20] MEDS: lisinopril 20mg tablet PO SCH (07:52)
[2021-08-20] MEDS: sennosides/docusate sodium tablet PO SCH (07:53)
[2021-08-20 08:00] VITALS: BP 129/52
[2021-08-20] MEDS: normal saline 1000ml 1,000 ML IV SCH (11:55)
[2021-08-20] MEDS ORDERED: CIPR-259 PO (12:42)
[2021-08-20] MEDS: CADD PCA waste documentation MC PRN (12:52)
--- NOTE | 2021-08-20 13:19 | NUR ---
CADD pump discontinued, IV removed, JANETTE drain removed, discharge paperwork reviewed with patient and at bedside. Per hot metal charger, medication has been sent over to patient's pharmacy of choice by Dr. Ornelas's office. Belongings sent home with patient. Patient free from injury.
== END 2021-08-20 14:56 | disposition home or self-care (01) | DRG 336 ==
LOC: PAS 06:10 → SUR 3N 12:04
PROVIDERS: ADMIT Surgery; ATTEND Surgery
PROC: 0DNU4ZZ Release Omentum, Percutaneous Endoscopic Approach (ICD-10-PCS; 2021-08-18)
PROC: 0F544ZZ Destruction of Gallbladder, Percutaneous Endoscopic Approach (ICD-10-PCS; 2021-08-18)
PROC: 0WQF0ZZ Repair Abdominal Wall, Open Approach (ICD-10-PCS; principal; 2021-08-18 09:43)
DX: K43.9 Ventral hernia without obstruction or gangrene (principal); K80.10 Calculus of gallbladder with chronic cholecystitis without obstruction; K66.0 Peritoneal adhesions (postprocedural) (postinfection); Z96.643 Presence of artificial hip joint, bilateral; F17.200 Nicotine dependence, unspecified, uncomplicated; Z80.9 Family history of malignant neoplasm, unspecified; Z82.3 Family history of stroke; Z79.899 Other long term (current) drug therapy; Z88.5 Allergy status to narcotic agent
CPT/HCPCS: 36415; 80053; 81001; 82948; 85025; 85027; 93005; A4215; A4618; A6449; A7000; G0378; J0131; J0461; J1170; J2250; J2405; J2543; J2704; J2710; J3010; J3490; J7030; J7120; S0020; U0003; U0005

== ENCOUNTER 2022-01-12 05:29 | Day surgery (SDC) | payer MEDICARE ==
[2022-01-05 14:56] LABS: BASOPHILS % (AUTO) 0.5 % (0-1); EOSINOPHILS # (AUTO) 0.1 X10'3 (0-0.9); EOSINOPHILS % (AUTO) 2.6 % (0-6); LYMPHOCYTES # (AUTO) 1.4 X10'3 (1.1-4.8); LYMPHOCYTES % (AUTO) 27.4 % (21-51); MEAN CORPUSCULAR HEMOGLOBIN 29.9 PG (27.0-31.0); MEAN CORPUSCULAR HGB CONC 34.3 g/dL (33.0-36.5); MEAN CORPUSCULAR VOLUME 87.1 FL (78-98); MEAN PLATELET VOLUME 7.1 FL (7.4-10.4); MONOCYTES # (AUTO) 0.4 X10'3 (0-0.9); MONOCYTES % (AUTO) 7.5 % (2-12); NEUTROPHILS # (AUTO) 3.1 X10'3 (1.8-7.7); PRE OP HEMATOCRIT 36.7 % (35.0-45.0); PRE OP HEMOGLOBIN 12.6 g/dL (12.0-16.0); PRE OP PLATELET COUNT 247 X10'3 (140-440); RED BLOOD COUNT 4.21 X10'6 (4.20-5.60); RED CELL DISTRIBUTION WIDTH 13.4 % (11.5-14.5)
[2022-01-05 15:11] LABS: ALBUMIN 3.8 G/DL (3.4-5.0); ALKALINE PHOSPHATASE 95 IU/L (46-116); BLOOD UREA NITROGEN 23 MG/DL (7-18); BUN/CREATININE RATIO 20.9 (6.6-38.0); CALCIUM 9.2 MG/DL (8.5-10.1); CHLORIDE 99 MMOL/L (99-107); PRE OP ALT 22 U/L (30-65); PRE OP ANION GAP 9 (8-16); PRE OP AST 20 U/L (10-37); PRE OP BILIRUB, TOTAL 0.3 MG/DL (0.0-1.0); PRE OP GLUCOSE 99 MG/DL (70-104); PRE OP SODIUM 143 MMOL/L (135-145); TOTAL CARBON DIOXIDE 34.9 MMOL/L (24-32); TOTAL PROTEIN 7.5 G/DL (6.4-8.2); eGFR 50 ML/MIN
[2022-01-05 15:24] LABS: PRE OP POTASSIUM 3.3 MMOL/L (3.4-5.1)
[2022-01-12] VITALS (13 sets, daily range): BP systolic 91–115; BP diastolic 39–65
[~2022-01-12] VITALS: Ht 162.6 cm; Wt 75.7 kg
[~2022-01-12 05:29] MED LIST changes: -BUPR-317 PO; +CYCL-1 PO; +DULO-31 PO; -DULO60CA65 PO; -ESTR10TA4 VG; -cefazolin/dext.iso 2gm/50ml IV ONE; -famotidine 20mg tablet PO ONE; +ringers solution, lacted 1,000 ML IV SCH
[2022-01-12] MEDS ORDERED: famotidine 20mg tablet PO ONE (05:30)
[2022-01-12] MEDS ORDERED: ceFAZolin inj. 2,000 MG in dextrose 5%-water 100 ML IV ONE (05:30)
[2022-01-12] MEDS ORDERED: BUPIVAcaine/PF 2.5 mg/ml (0.25%) 30ml vial ONE ×2 (07:11→09:27)
[2022-01-12 07:33] LABS: ALANINE AMINOTRANSFERASE 22 U/L (12-78); ALBUMIN 3.8 G/DL (3.4-5.0); ALBUMIN/GLOBULIN RATIO 1.1 (1.1-1.5); ALKALINE PHOSPHATASE 83 IU/L (46-116); ANION GAP 9 (8-16); ASPARTATE AMINO TRANSFERASE 20 U/L (10-37); BILIRUBIN,TOTAL 0.5 MG/DL (0.1-1.0); BLOOD UREA NITROGEN 21 MG/DL (7-18); BUN/CREATININE RATIO 19.4 (6.6-38.0); CALCIUM 9.5 MG/DL (8.5-10.1); CHLORIDE 103 MMOL/L (99-107); CREATININE 1.08 MG/DL (0.40-0.90); GLUCOSE 98 MG/DL (70-104); POTASSIUM 3.7 MMOL/L (3.5-5.1); SODIUM 141 MMOL/L (135-145); TOTAL CARBON DIOXIDE 29.1 MMOL/L (24-32); TOTAL PROTEIN 7.2 G/DL (6.4-8.2); eGFR 51 ML/MIN
[2022-01-12] MEDS ORDERED: midazolam 1 mg/ML 2ml injection ONE (08:32)
[2022-01-12] MEDS ORDERED: fentaNYL/PF 50MCG/1 ML 2ML syringe ONE (08:32)
[2022-01-12] MEDS ORDERED: rocuronium 10mg/ml inj IV ONE (08:34)
[2022-01-12] MEDS ORDERED: LIDOcaine 2% (20mg/ml) 5ml vial ONE (08:34)
[2022-01-12] MEDS ORDERED: propofol inj 20 ML IV ONE (08:34)
[2022-01-12] MEDS ORDERED: sevoflurane 250ml liquid IH ONE (08:50)
[2022-01-12] MEDS ORDERED: HYDROmorphone/PF 0.2 MG/ML SYRINGE IV PRN (09:05)
[2022-01-12] MEDS ORDERED: meperidine/PF 25mg/ml syringe IV PRN ×2 (09:05)
[2022-01-12] MEDS ORDERED: ringers solution, lacted 1,000 ML IV SCH (09:05)
[2022-01-12] MEDS ORDERED: ondansetron/PF 4mg/2ml inj IV PRN (09:05)
[2022-01-12] MEDS ORDERED: ketamine 50 mg/ml 10ml vial ONE (09:21)
[2022-01-12] MEDS ORDERED: BUPIVACAINE liposomal/PF 13.3 MG/ML vial IM ONE (09:27)
[2022-01-12] MEDS ORDERED: acetaminophen 1,000mg/100ml IV 100 ML IV ONE (09:51)
[2022-01-12] MEDS ORDERED: neostigmine methylsulfate 1 MG/ML 10ml vial ONE (09:51)
[2022-01-12] MEDS ORDERED: dexamethasone sod phosphate 4mg/ml inj. ONE (09:51)
[2022-01-12] MEDS ORDERED: ondansetron/PF 4mg/2ml inj ONE (09:51)
[2022-01-12] MEDS ORDERED: glycopyrrolate 0.2mg/ml inj ONE (09:51)
[2022-01-12] MEDS ORDERED: phenylephrine 10mg/ml inj. ONE (10:16)
[2022-01-12] MEDS ORDERED: ePHEDrine 50MG/ML INJ. ONE (10:16)
--- NOTE | 2022-01-12 10:36 | NUR ---
Received from OR via VISHNU , accompanied by Anesthesiologist and report given by SANDY Anesthesiologist. PATIENT WAS WAKING UP, NO S/S OF PAIN, V/S WNL, SCD ON , PIV 20G RUE, DERMABONDED AND STERISTRIPS LAPS SITES CLOSED CDI TO ABDOMEN WITH ABDOMINAL BINDER. Addendum: 01/12/22 at 1114 by Venkat Matthews RN Amended: Links added.
[2022-01-12] MEDS ORDERED: sugammadex 200mg/2ml injection IV ONE (10:43)
[2022-01-12] MEDS: meperidine/PF 25mg/ml syringe IV PRN ×2 (10:51→11:10)
[2022-01-12] MEDS: HYDROmorphone/PF 0.2 MG/ML SYRINGE IV PRN ×3 (10:59→11:18)
[2022-01-12] MEDS ORDERED: LORazepam 2 mg/ml vial IV PRN (11:30)
--- NOTE | 2022-01-12 12:41 | NUR ---
ALL DISCHARGE CRITERIA HAS BEEN MET. VSS, PAIN AT A TOLERABLE LEVEL, ABLE TO SAFELY AMBULATE AND TRANSFER SELF. IV TAKEN OUT WITHOUT ANY COMPLICATIONS. ALL DISCHARGE INSTRUCTIONS COVERED WITH PATIENT AND ALL QUESTIONS ANSWERED. PATIENT TAKEN OUT VIA WHEELCHAIR WITH ALL BELONGINGS TO PERSONAL VEHICLE WHERE FAMILY DROVE PATIENT HOME. Addendum: 01/12/22 at 1258 by Venkat Matthews RN Amended: Links added.
== END 2022-01-12 12:41 | disposition home or self-care (01) ==
LOC: PAS 05:29
PROVIDERS: ATTEND Surgery
DX: K43.2 Incisional hernia without obstruction or gangrene (principal); K66.0 Peritoneal adhesions (postprocedural) (postinfection); F32.9 Major depressive disorder, single episode, unspecified; K21.9 Gastro-esophageal reflux disease without esophagitis; I10 Essential (primary) hypertension; Z88.8 Allergy status to other drugs, medicaments and biological substances; Z88.6 Allergy status to analgesic agent; Z79.899 Other long term (current) drug therapy; Z98.890 Other specified postprocedural states; Z90.49 Acquired absence of other specified parts of digestive tract; Z87.891 Personal history of nicotine dependence
CPT/HCPCS: 36415; 49654; 64488; 80053; 82948; 85025; 87811; C1781; C9290; J0131; J0690; J1100; J1170; J2175; J2250; J2370; J2405; J2704; J2710; J3010; J3490; J7030; J7060; J7120; Z7506; Z7508; Z7512; A4618; A7000

== ENCOUNTER 2022-04-06 10:26 | Day surgery (SDC) | payer MEDICARE ==
[2022-04-01 15:16] LABS: BASOPHILS % (AUTO) 0.5 % (0-1); CLARITY,URINE CLOUDY (Clear); COLOR,URINE YELLOW (Yellow); EOSINOPHILS # (AUTO) 0.1 X10'3 (0-0.9); EOSINOPHILS % (AUTO) 2.3 % (0-6); GLUCOSE, URINE NEGATIVE (Neg); KETONES,URINE TRACE mg/dl (Neg); LEUKOCYTE ESTERASE ,URINE NEGATIVE (Neg); LYMPHOCYTES # (AUTO) 1.7 X10'3 (1.1-4.8); LYMPHOCYTES % (AUTO) 31.3 % (21-51); MEAN CORPUSCULAR HEMOGLOBIN 29.9 PG (27.0-31.0); MEAN CORPUSCULAR HGB CONC 34.9 g/dL (33.0-36.5); MEAN CORPUSCULAR VOLUME 85.7 FL (78-98); MEAN PLATELET VOLUME 7.3 FL (7.4-10.4); MONOCYTES # (AUTO) 0.4 X10'3 (0-0.9); MONOCYTES % (AUTO) 6.7 % (2-12); NEUTROPHILS # (AUTO) 3.2 X10'3 (1.8-7.7); NEUTROPHILS % (AUTO) 59.2 % (42-75); NITRITES, URINE NEGATIVE (Neg); OCCULT BLOOD,URINE MODERATE (Neg); PRE OP HEMATOCRIT 35.6 % (35.0-45.0); PRE OP HEMOGLOBIN 12.4 g/dL (12.0-16.0); PRE OP PLATELET COUNT 299 X10'3 (140-440); PROTEIN,URINE NEGATIVE (Neg); RED BLOOD COUNT 4.15 X10'6 (4.20-5.60); RED CELL DISTRIBUTION WIDTH 13.6 % (11.5-14.5); UROBILINOGEN,URINE 0.2 E.U/dL (0.2-1.0)
[2022-04-01 15:24] LABS: UA COLLECTION TYPE CLN CATCH MIDSTREAM
[2022-04-01 15:26] LABS: BACTERIA,URINE 1+ /HPF (Neg); HYALINE CASTS >30 /LPF (NEGATIVE); MUCUS STRANDS MODERATE /LPF (Neg); RBC,URINE 50-100 /HPF (0-2); SQUAMOUS EPITHELIAL CELL,UR MODERATE /LPF (FEW)
[2022-04-01 15:28] LABS: WBC,URINE 0-4 /HPF (0-4)
[2022-04-01 15:31] LABS: ALBUMIN 3.9 G/DL (3.4-5.0); ALBUMIN/GLOBULIN RATIO 1.1 (1.1-1.5); ALKALINE PHOSPHATASE 102 IU/L (46-116); BLOOD UREA NITROGEN 19 MG/DL (7-18); CALCIUM 9.6 MG/DL (8.5-10.1); CHLORIDE 100 MMOL/L (99-107); PRE OP ALT 23 U/L (30-65); PRE OP ANION GAP 8 (8-16); PRE OP AST 22 U/L (10-37); PRE OP BILIRUB, TOTAL 0.4 MG/DL (0.0-1.0); PRE OP GLUCOSE 103 MG/DL (70-104); PRE OP POTASSIUM 3.4 MMOL/L (3.4-5.1); PRE OP SODIUM 139 MMOL/L (135-145); TOTAL CARBON DIOXIDE 31.4 MMOL/L (24-32); TOTAL PROTEIN 7.5 G/DL (6.4-8.2); eGFR 55 ML/MIN
[~2022-04-06] VITALS: Ht 162.6 cm; Wt 74.2 kg
[2022-04-06] VITALS (17 sets, daily range): BP systolic 103–142; BP diastolic 47–73
[~2022-04-06 10:26] MED LIST changes: +BUPIVAcaine/PF 2.5mg/ml (0.25%) 10ml vial ONE; -GABA300C PO; -GABA600T13 PO; +PANT40TA54 PO; +VALA100031 PO; +bacitracin 15gm ointment TP ONE; +ceFAZolin inj. 2,000 MG in dextrose 5%-water 100 ML IV ONE; +famotidine 20mg tablet PO ONE; +hormone cream
[2022-04-06] MEDS ORDERED: midazolam 1 mg/ML 2ml injection ONE (12:40)
[2022-04-06] MEDS ORDERED: fentaNYL/PF 50MCG/1 ML 2ML syringe ONE (12:40)
[2022-04-06] MEDS ORDERED: propofol inj 20 ML IV ONE (12:44)
[2022-04-06] MEDS ORDERED: LIDOcaine 2% (20mg/ml) 5ml vial ONE (12:44)
[2022-04-06] MEDS ORDERED: rocuronium 10mg/ml inj IV ONE (12:52)
[2022-04-06] MEDS ORDERED: dexamethasone sod phosphate 4mg/ml inj. ONE (12:52)
[2022-04-06] MEDS ORDERED: morphine 2 MG/ML inj. syringe IV PRN (13:15)
[2022-04-06] MEDS ORDERED: ringers solution, lacted 1,000 ML IV SCH (13:15)
[2022-04-06] MEDS ORDERED: ondansetron/PF 4mg/2ml inj IV PRN (13:15)
[2022-04-06] MEDS ORDERED: meperidine/PF 25mg/ml syringe IV PRN ×2 (13:15)
[2022-04-06] MEDS ORDERED: proCHLORperazine 10 MG/2 ml inj IV PRN (13:15)
[2022-04-06] MEDS ORDERED: acetaminophen 1,000mg/100ml IV 100 ML IV ONE (13:28)
[2022-04-06] MEDS ORDERED: glycopyrrolate 0.2mg/ml inj ONE (13:40)
--- NOTE | 2022-04-06 13:43 | NUR ---
Received from OR via VISHNU, accompanied by Anesthesiologist DR. MI and report given by Anesthesiolgist. PATIENT ARRIVED DROWSY ON 10L 02 VIA MASK, V/S WNL, PIV 20G LAC, DERMABONDED LAPS SITES CLOSED CDI TO ABDOMEN. WILL CONTINUE TO MONITOR. Addendum: 04/06/22 at 1354 by Corry Villa RN Amended: Links added.
[2022-04-06] MEDS: meperidine/PF 25mg/ml syringe IV PRN ×2 (13:56→14:17)
[2022-04-06] MEDS: morphine 4 MG/ML inj SYRINge IV PRN ×2 (14:08→14:21)
[2022-04-06] MEDS ORDERED: fentaNYL/PF 50MCG/1 ML 2ML syringe IV PRN ×2 (14:30)
[2022-04-06] MEDS ORDERED: HYDROmorphone/PF 0.2 MG/ML SYRINGE IV PRN ×2 (14:30)
--- NOTE | 2022-04-06 15:43 | NUR ---
PT HAS MET D/C CRITERIA. IV D/C'Xiang REBOLLEDOSPaula LARSON HAS NO CHANGE. PT ABLE TO TOLERATE FLUIDS, VOID AND AMBULATE. I HAVE REVIEWED D/C INSTRUCTIONS WITH PATIENT AND SHE HAS VERBALIZED UNDERSTANDING OF INSTRUCTIONS. PATIENT D/C HOME WITH ALL BELONGINGS. Addendum: 04/06/22 at 1608 by Corry Villa RN Amended: Links added.
== END 2022-04-06 15:43 | disposition home or self-care (01) ==
LOC: PAS 10:26
PROVIDERS: ATTEND Surgery
DX: K43.2 Incisional hernia without obstruction or gangrene (principal); I10 Essential (primary) hypertension; F32.9 Major depressive disorder, single episode, unspecified; K21.9 Gastro-esophageal reflux disease without esophagitis; Z79.899 Other long term (current) drug therapy; Z98.890 Other specified postprocedural states; Z90.49 Acquired absence of other specified parts of digestive tract; Z88.6 Allergy status to analgesic agent; Z88.8 Allergy status to other drugs, medicaments and biological substances; Z90.710 Acquired absence of both cervix and uterus; Z87.891 Personal history of nicotine dependence
CPT/HCPCS: 36415; 49560; 80053; 81001; 82948; 85025; 93005; J0131; J0690; J1100; J1170; J2175; J2250; J2270; J2704; J3010; J3490; J7030; J7060; J7120; Z7506; Z7508; Z7512; A4215; A4615; A4618; A7000

== ENCOUNTER 2023-01-24 13:24 | Emergency (ER) | payer MEDICARE ==
[~2023-01-24] VITALS: Ht 160 cm; Wt 77.0 kg
[~2023-01-24 13:24] MED LIST changes: -BUPIVAcaine/PF 2.5mg/ml (0.25%) 10ml vial ONE; -bacitracin 15gm ointment TP ONE; -ceFAZolin inj. 2,000 MG in dextrose 5%-water 100 ML IV ONE; -famotidine 20mg tablet PO ONE; -ringers solution, lacted 1,000 ML IV SCH
[2023-01-24 13:31] VITALS: TEMP 98.3
[2023-01-24 13:43] LABS: BASOPHILS % (AUTO) 0.6 % (0-1); EOSINOPHILS # (AUTO) 0.2 X10'3 (0-0.9); EOSINOPHILS % (AUTO) 4.2 % (0-6); HEMATOCRIT 37.7 % (35.0-45.0); HEMOGLOBIN 12.6 g/dl (12.0-16.0); LYMPHOCYTES # (AUTO) 1.7 X10'3 (1.1-4.8); LYMPHOCYTES % (AUTO) 32.9 % (21-51); MEAN CORPUSCULAR HEMOGLOBIN 29.8 PG (27.0-31.0); MEAN CORPUSCULAR HGB CONC 33.4 g/dL (33.0-36.5); MEAN CORPUSCULAR VOLUME 89.1 FL (78-98); MEAN PLATELET VOLUME 7.3 FL (7.4-10.4); MONOCYTES # (AUTO) 0.4 X10'3 (0-0.9); NEUTROPHILS # (AUTO) 2.7 X10'3 (1.8-7.7); NEUTROPHILS % (AUTO) 54.3 % (42-75); PLATELET COUNT 272 X10'3 (140-440); RED BLOOD COUNT 4.23 X10'6 (4.20-5.60); RED CELL DISTRIBUTION WIDTH 13.6 % (11.5-14.5)
[2023-01-24 13:57] LABS: ALANINE AMINOTRANSFERASE 15 U/L (12-78); ALBUMIN 4.1 G/DL (3.4-5.0); ALBUMIN/GLOBULIN RATIO 1.1 (1.1-1.5); ALKALINE PHOSPHATASE 115 IU/L (46-116); ANION GAP 5 (8-16); ASPARTATE AMINO TRANSFERASE 25 U/L (10-37); BILIRUBIN,TOTAL 0.3 MG/DL (0.1-1.0); BLOOD UREA NITROGEN 28 MG/DL (7-18); BUN/CREATININE RATIO 24.6 (10.0-20.0); CALCIUM 9.9 MG/DL (8.5-10.1); CHLORIDE 99 MMOL/L (99-107); CREATININE 1.14 MG/DL (0.40-0.90); GLUCOSE 85 MG/DL (70-104); POTASSIUM 4.1 MMOL/L (3.5-5.1); SODIUM 138 MMOL/L (135-145); TOTAL CARBON DIOXIDE 33.6 MMOL/L (24-32); TOTAL PROTEIN 7.7 G/DL (6.4-8.2); eCRCL 40 ML/MIN; eGFR 48 ML/MIN
[2023-01-24 14:05] LABS: PRO BRAIN NATRIURETIC PEPTIDE 93 PG/ML (0-125)
[2023-01-24 15:28] LABS: D-DIMER 0.76 MG/L FEU (0-0.50)
[2023-01-24 19:13] VITALS: BP 113/46; PULSE 65; RESP 16; O2SAT 99
[2023-01-24] MEDS ORDERED: iohexol 350MG/ML 100ml bottle IV ONE (20:26)
== END 2023-01-24 19:42 | disposition home or self-care (01) ==
LOC: ER 13:25
DX: R10.13 Epigastric pain (principal); K21.9 Gastro-esophageal reflux disease without esophagitis; F32.A Depression, unspecified; Z88.8 Allergy status to other drugs, medicaments and biological substances; Z79.899 Other long term (current) drug therapy
CPT/HCPCS: 36415; 71045; 71275; 80053; 83880; 84484; 85025; 85379; 93005; 99285; Q9967